=== PATIENT | female | born 1980 | race Caucasian/White ===

== ENCOUNTER 2017-12-28 06:51 | Observation (INO) | payer BC ==
[~2017-12-28 06:51] MED LIST: Lactated Ringers 1,000 ML IV SCH; Sodium Chloride 0.9% 10 ML Syringe FLUSH PRN; Sodium Chloride 0.9% 2.5 ML Syringe FLUSH PRN
[2017-12-28] MEDS ORDERED: Lactated Ringers 1,000 ML IV SCH (07:00)
[2017-12-28] MEDS ORDERED: Rocuronium 10 MG/ML 10 ML Syringe ONE (07:24)
[2017-12-28] MEDS ORDERED: Etomidate 2 MG/ML 20 ML SDV IVPUSH ONE (07:24)
[2017-12-28] MEDS ORDERED: Ondansetron 4 MG/2 ML SDV ONE (07:24)
[2017-12-28] MEDS ORDERED: Midazolam 1 MG/ML 2 ML SDV ONE (07:24)
[2017-12-28] MEDS ORDERED: fentaNYL 250 MCG/5 ML SDV ONE (07:24)
[2017-12-28] MEDS ORDERED: Lidocaine 2% 5 ML SDV ONE (07:24)
[2017-12-28] MEDS ORDERED: Bupivacaine 0.25% 10 ML SDV ONE ×2 (07:26)
--- NOTE | 2017-12-28 07:27 | PCM.PREANE ---
Preanesthetic Assessment - Anesthesia/Transfusion/Family Hx Anesthesia History: Prior Anesthesia Without Reaction Family History of Anesthesia Reaction: No Transfusion History: No Prior Transfusion(s) Intubation History: Unknown - Review of Systems General: No Symptoms Pulmonary: No Symptoms Cardiovascular: No Symptoms Gastrointestinal: No Symptoms Neurological: No Symptoms Other: Reports: None - Physical Assessment Height: 1.73 m Weight: 75.296 kg ASA Class: 3 Mental Status: Alert & Oriented x3 Airway Class: Mallampati = 2 Dentition: Reports: Normal Dentition Thyro-Mental Finger Breadths: 3 Mouth Opening Finger Breadths: 2 ROM/Head Extension: Full Lungs: Clear to Auscultation, Normal Respiratory Effort Cardiovascular: Regular Rate, Regular Rhythm - Allergies Allergies/Adverse Reactions: Allergies Allergy/AdvReac Type Severity Reaction Status Date / Time No Known Allergies Allergy Verified 12/23/17 10:19 - Blood Blood Available: No - Anesthesia Plan Pre-Op Medication Ordered: None - Acknowledgements Anesthesia Type Planned: General Anesthesia Pt an Appropriate Candidate for the Planned Anesthesia: Yes Alternatives and Risks of Anesthesia Discussed w Pt/Guardian: Yes Pt/Guardian Understands and Agrees with Anesthesia Plan: Yes PreAnesthesia Questionnaire HEENT History: Reports: Other (See Below) Other HEENT History: wears glasses/contacts Cardiovascular History: Reports: CAD, Cardiomyopathy (EF 35-39%), [place], Stents ( x2 LAD in '12 (november) after STEMI, followed by defibrilator insertion in january), Other (See Below) Other Cardiovascular History: cardiac arrest in 2011, states "had blood clot by my heart after cardiac arrest" Gastrointestinal History: Reports: Other (See Below) Other Gastrointestinal History: occasional heartburn Genitourinary History: Reports: None Musculoskeletal History: Reports: Fracture Other Musculoskeletal History: fx ankle, wrist and ribs Neurological History: Reports: Migraines Psychiatric History: Reports: Anxiety, Depression, Mood Swings - Past Surgical History Head Surgeries/Procedures: Reports: None Cardiovascular Surgical History: Reports: Coronary Artery Stent Other Cardiovascular Surgeries/Procedures: defribrillator placement GI Surgical History: Reports: Cholecystectomy Female Surgical History: Reports: Breast Biopsy, LEEP, Other (See Below) Other Female Surgeries/Procedures: laparoscopy for ovarian cystectomy - SUBSTANCE USE Smoking Status *Q: Former Smoker Tobacco Use Within Last Twelve Months: No Recreational Drug Use History: No - HOME MEDS Home Medications: Home Meds Aspirin [[place] Aspirin] 81 mg PO DAILY 12/23/17 [History] Carvedilol [Coreg] 1 tab PO BID 12/23/17 [History] Fish Oil/[place]-3 Fatty Acids [Fish Oil 1,000 MG] 1 tab PO DAILY 12/23/17 [ History] Lisinopril 2.5 mg PO DAILY 12/23/17 [History] Nitroglycerin 1 tab SL ASDIRECTED PRN 12/23/17 [History] Norethindrone [Nupur] 1 tab PO DAILY 12/23/17 [History] Spironolactone [Aldactone] 0.5 tab PO DAILY 12/23/17 [History] Ubidecarenone [Coq-10] 1 tab PO DAILY 12/23/17 [History] Vitamin B Complex 1 tab PO DAILY 12/23/17 [History] atorvaSTATin Calcium [Atorvastatin Calcium] 40 mg PO DAILY 12/23/17 [History] buPROPion HCl [Wellbutrin Xl] 450 mg PO DAILY 12/23/17 [History] busPIRone [Buspar] 5 mg PO BID 12/23/17 [History] - CURRENT (IN HOUSE) MEDS Current Meds: Current Medications Lactated Ringer's (Ringers, Lactated) 1,000 mls @ 125 mls/hr IV ASDIRECTED [facility] Sodium Chloride (Saline Flush) 10 ml FLUSH ASDIRECTED PRN PRN Reason: Keep Vein Open Sodium Chloride (Saline Flush) 2.5 ml FLUSH ASDIRECTED PRN PRN Reason: Keep Vein Open Discontinued Medications Lactated Ringer's (Ringers, Lactated) 1,000 mls @ 125 mls/hr IV ASDIRECTED [facility]
[2017-12-28] MEDS ORDERED: Dexamethasone 4 MG/ML 5 ML MDV ONE (08:17)
[2017-12-28] MEDS ORDERED: diphenhydrAMINE 50 MG/ML SDV ONE (08:17)
[2017-12-28] MEDS ORDERED: fentaNYL 100 MCG/2 ML SDV IVPUSH PRN (08:51)
[2017-12-28] MEDS ORDERED: Acetaminophen/oxyCODONE 325-10 MG Tab PO PRN (09:34)
--- NOTE | 2017-12-28 09:41 | PCM.OPNOTE ---
- General Post-Op/Procedure Note Date of Surgery/Procedure: 12/28/17 Operative Procedure(s): Laparoscopy, bilateral salpingectomy Findings: Normal anteverted uterus, normal cervix, normal ovaries bilaterally. Left fallopian tube fibrimal end adherent to the posterior surface of the left ovary Pre Op Diagnosis: Paratuabl cysts Post-Op Diagnosis: Same Anesthesia Technique: General ET Tube Primary Surgeon: Ирина Delgadillo Strawberry Grower: Marjorie Hensley Pathology: Right and left fallopian tubes EBL in mLs: 10 Complications: None Condition: Good Free Text/Narrative:: Intake & Output 12/27/17 12/28/17 12/28/17 22:59 06:59 14:59 Output Total 30 Balance -30
--- NOTE | 2017-12-28 10:00 | PCM.POSTAN ---
POST ANESTHESIA ASSESSMENT - MENTAL STATUS Mental Status: Alert, Oriented - VITAL SIGNS Pulse Rate: 76 SaO2: 99 Resp Rate: 12 - RESPIRATORY Respiratory Status: Respiratory Rate WNL, Airway Patent, O2 Saturation Stable - CARDIOVASCULAR CV Status: Pulse Rate WNL, Blood Pressure Stable - GASTROINTESTINAL GI Status: No Symptoms - PAIN Pain Score: 3 - POST OP HYDRATION Hydration Status: Adequate & Stable
--- NOTE | 2017-12-28 10:39 | PCM48HPAN ---
Post Anesthesia Note - EVALUATION WITHIN 48HRS OF ANESTHETIC Vital Signs in Normal Range: Yes Patient Participated in Evaluation: Yes Respiratory Function Stable: Yes Airway Patent: Yes Cardiovascular Function Stable: Yes Hydration Status Stable: Yes Pain Control Satisfactory: Yes Nausea and Vomiting Control Satisfactory: Yes Mental Status Recovered: Yes Pulse Rate: 76 Resp Rate: 12
[2017-12-28] MEDS: Acetaminophen/oxyCODONE 325-5 MG Tab PO PRN ×3 (10:40→19:23)
--- NOTE | 2017-12-28 12:22 | PCM.SN ---
- Free Text/Narrative Note: Patient is comfortable on the floor. Denies pain and has been out of bed, tolerated it, has urinated twice. No vaginal bleeding She is on telemetry. Vital signs are stable A/P: POD#0 s/p laparoscopy with bilateral salpingectomy, stable Continue current care Saline lock Pain meds PRN Patient would stay in for overnight observation on telemetry due to her cardiac history.
[2017-12-28] MEDS ORDERED: Carboxymethylcellulose Sodium 0.5% Ophth Soln 0.4 ML UD Box of 30 EYEBOTH PRN (17:02)
--- NOTE | 2017-12-28 20:13 | OR ---
SURGEON: Ирина Delgadillo MD DATE OF PROCEDURE: 12/28/2017 INSTRUCTIONAL TECHNOLOGY TEACHER: JO HERNANDEZ. PREOPERATIVE DIAGNOSIS: Paraovarian cyst. POSTOPERATIVE DIAGNOSIS: Paraovarian cyst. PROCEDURE PERFORMED: Laparoscopic bilateral salpingectomy. ANESTHESIA: General endotracheal. COMPLICATIONS: None. ESTIMATED BLOOD LOSS: Minimal. DISPOSITION: Stable to recovery room. FINDINGS: Normal-sized anteverted uterus. Left fallopian tube and fimbria end adherent posteriorly to the left ovary. Right ovary looked grossly normal. No other pelvic or abdominal pathology were noted. INDICATION: Patient is a 37-year-old lady who is requesting to have her tubes removed due to recurrent symptomatic paratubal cysts. At present time, they have been managed conservatively due to her extensive cardiac history, but she would like to proceed with the tubes removed, especially since she is not interested in having kids of her own. She understands that the removal of the tubes lead to permanent sterilization. Due to her extensive cardiac history (stents and defibrillator in situ), she has been cleared medically by the cement car dumper. She would be in-house overnight for observation post surgery. The risks of the surgery including alternatives were discussed with the patient extensively and she opted to proceed with the surgery and appropriate consent was obtained. DESCRIPTION OF PROCEDURE: The patient was taken to the operating room, where induction of general anesthesia was performed without difficulty. After appropriate level of anesthesia, she was placed in dorsal lithotomy position, prepped and draped in a sterile fashion for laparoscopic surgery. The bladder was emptied. Examination under anesthesia revealed a normal-sized uterus with no adnexal masses palpable. The a bivalve speculum was placed in the patient's vagina and anterior lip of the cervix was grasped with an Allis clamp, Zumi uterine manipulator was then advanced into the uterus and the balloon inflated. The speculum was removed from the vagina and conveyor system operator's gloves were changed. The attention was then turned to the patient's abdomen. The umbilical fold infiltrated with 0.25 Marcaine and a 5-mm skin incision was made with a scalpel within the umbilical fold. The laparoscope was placed into 5-mm trocar and with this placed perpendicular to the abdomen, entry into the abdominal cavity was achieved and confirmed optically. The gas was then used to insufflate to a pressure of 12 mmHg. Abdominal and pelvic survey was performed and then the second and the third trocars were placed in the lower uterine quadrants under direct visualization, 8 cm from the mid level after infiltration with 0.5% Marcaine. The aforementioned findings were then noted. Using the 5-mm ligature device, the fimbrial end of the left fallopian tube, which was adherent to the left ovary was then gently detached by serially cauterizing the mesosalpinx close to the tube. This was totally detached and removed from the abdominal cavity. Then using a nontraumatic grasper, the rest of the fallopian tube was grasped and the routine salpingectomy was performed by serial cauterization and ligation of the mesonephric until the cornual end was reached. The left tube was then detached and removed completely from the abdominal cavity through the 5-mm port. The same procedure was performed on the right side and a routine salpingectomy was performed without difficulty. The right tube was detached and removed completely from the abdominal cavity through the port. Copious irrigation was performed and operative sites were found to be hemostatic. The CO2 gas was released. The left and right ports were then removed from the abdominal cavity under direct visualization. The umbilical port was also removed. All skin incisions were closed with 4-0 Monocryl using subcuticular stitches. The Zumi manipulator was removed from the patient's vagina and no bleeding was noted from the clamp application site on the cervix. The patient tolerated the procedure well. Sponge, lap, and needle counts were correct at the end of the procedure. She was taken to the recovery room in stable condition. ADUMVIV / JO ANNL /[id number] FAITH
[2017-12-28] MEDS ORDERED: Carvedilol 6.25 MG Tab PO SCH (21:00)
[2017-12-28] MEDS ORDERED: atorvaSTATin 40 MG Tab PO SCH (21:00)
[2017-12-28] MEDS ORDERED: busPIRone 5 MG Tab PO SCH (21:00)
--- NOTE | 2017-12-29 06:45 | PCM.SURGPN ---
- General Info Date of Service: 12/29/17 POD#: 1 Post-Op Diagnosis: s/p laparoscopy with bilateral salpingectomy Functional Status: Reports: Pain Controlled, Tolerating Diet, Ambulating, Urinating - Review of Systems General: Denies: Fever, Weakness, Malaise, Chills HEENT: Denies: Headaches Pulmonary: Denies: Shortness of Breath, Pleuritic Chest Pain Cardiovascular: Denies: Chest Pain, Palpitations, Dyspnea on Exertion, Orthopnea Gastrointestinal: Denies: Abdominal Pain - Patient Data Vitals - Most Recent: Last Vital Signs Temp 36.7 C 12/29/17 04:00 Pulse 72 12/29/17 04:00 Resp 19 12/29/17 04:00 BP 104/58 L 12/29/17 04:00 Pulse Ox 96 12/29/17 04:00 Weight - Most Recent: 165 lb 15.988 oz I&O - Last 24 Hours: Intake & Output 12/28/17 12/28/17 12/29/17 14:59 22:59 06:59 Intake Total 3141 140 7864 Output Total 30 840 3050 Balance 1270 -60 -1640 Lab Results Last 24 Hrs: Laboratory Results - last 24 hr 12/28/17 12/28/17 12/28/17 Range/Units 07:09 07:09 07:20 WBC 6.40 (4.0-11.0) K/uL RBC 4.63 (4.30-5.90) M/uL Hgb 14.4 (12.0-16.0) g/dL Hct 41.6 (36.0-46.0) % MCV 89.8 (80.0-98.0) fL MCH 31.1 (27.0-32.0) pg MCHC 34.6 (31.0-37.0) g/dL RDW Std Deviation 41.7 (28.0-62.0) fl RDW Coeff of Joni 13 (11.0-15.0) % Plt Count 327 (150-400) K/uL MPV 9.10 (7.40-12.00) fL Nucleated RBC % 0.0 /100WBC Nucleated RBCs # 0 K/uL Urine HCG, Qual NEGATIVE (NEGATIVE) Blood Type A POSITIVE Antibody Screen NEGATIVE Med Orders - Current: Current Medications Artificial Tears (Refresh Plus 0.5%) 1 each EYEBOTH ASDIRECTED PRN PRN Reason: Dry Eyes Last Admin: 12/28/17 17:50 Dose: 1 drop Atorvastatin Calcium (Lipitor) 40 mg PO BEDTIME [facility] Last Admin: 12/28/17 21:16 Dose: 40 mg Buspirone HCl (Buspar) 5 mg PO BID [facility] Last Admin: 12/28/17 21:16 Dose: 5 mg Carvedilol (Coreg) 6.25 mg PO BID [facility] Last Admin: 12/28/17 21:16 Dose: 6.25 mg Fentanyl (Sublimaze) 50 mcg IVPUSH .Q5MIN PRN PRN Reason: Pain Oxycodone/Acetaminophen (Percocet 325-5 Mg) 1 tab PO Q4H PRN PRN Reason: Pain Last Admin: 12/28/17 19:23 Dose: 1 tab Oxycodone/Acetaminophen (Percocet 325-10 Mg) 2 tab PO Q4H PRN PRN Reason: Pain Last Admin: 12/29/17 04:00 Dose: 2 tab Discontinued Medications Bupivacaine HCl (Sensorcaine-Mpf 0.25%) Confirm Administered Dose 10 ml .ROUTE .STK-MED ONE Stop: 12/28/17 07:27 Bupivacaine HCl (Sensorcaine-Mpf 0.25%) Confirm Administered Dose 10 ml .ROUTE .STK-MED ONE Stop: 12/28/17 07:27 Dexamethasone (Dexamethasone) Confirm Administered Dose 20 mg .ROUTE .STK-MED ONE Stop: 12/28/17 08:18 Diphenhydramine HCl (Benadryl) Confirm Administered Dose 50 mg .ROUTE .STK-MED ONE Stop: 12/28/17 08:18 Etomidate (Amidate) Confirm Administered Dose 40 mg IVPUSH .STK-MED ONE Stop: 12/28/17 07:25 Fentanyl (Sublimaze) Confirm Administered Dose 250 mcg .ROUTE .STK-MED ONE Stop: 12/28/17 07:25 Lactated Ringer's (Ringers, Lactated) 1,000 mls @ 125 mls/hr IV ASDIRECTED [facility] Lactated Ringer's (Ringers, Lactated) 1,000 mls @ 125 mls/hr IV ASDIRECTED [facility] Last Admin: 12/28/17 07:15 Dose: 125 mls/hr Acetaminophen (Ofirmev) Confirm Administered Dose 100 mls @ as directed IV .STK- MED ONE Stop: 12/28/17 07:29 Lidocaine (Xylocaine-Mpf 2%) Confirm Administered Dose 5 ml .ROUTE .STK-MED ONE Stop: 12/28/17 07:25 Midazolam HCl (Versed 1 Mg/Ml) Confirm Administered Dose 2 mg .ROUTE .STK-MED ONE Stop: 12/28/17 07:25 Ondansetron HCl (Zofran) Confirm Administered Dose 4 mg .ROUTE .STK-MED ONE Stop: 12/28/17 07:25 Rocuronium [place] (Zemuron) Confirm Administered Dose 100 mg .ROUTE .STK-MED ONE Stop: 12/28/17 07:25 Sodium Chloride (Saline Flush) 10 ml FLUSH ASDIRECTED PRN PRN Reason: Keep Vein Open Sodium Chloride (Saline Flush) 2.5 ml FLUSH ASDIRECTED PRN PRN Reason: Keep Vein Open - Exam Wound/Incisions: Dressing Dry and Intact General: Alert, Oriented Lungs: Clear to Auscultation, Normal Respiratory Effort Cardiovascular: Regular Rate, Regular Rhythm GI/Abdominal Exam: Normal Bowel Sounds, Non-Tender Extremities: Normal Inspection, No Pedal Edema Skin: Warm Psy/Mental Status: Alert, Normal Affect, Normal Mood - Problem List & Annotations (1) S/P laparoscopic procedure SNOMED Code(s): 591537834, 144132868, 851609787 Code(s): Z98.890 - OTHER SPECIFIED POSTPROCEDURAL STATES Status: Acute Current Visit: Yes (2) Status post bilateral salpingectomy SNOMED Code(s): 829329313, 341410413 Code(s): Z90.79 - ACQUIRED ABSENCE OF OTHER GENITAL ORGAN(S) Status: Acute Current Visit: Yes - Problem List Review Problem List Initiated/Reviewed/Updated: Yes - My Orders Last 24 Hours: Active Orders 24 hr Category Date Time Status Patient Status [ADT] Routine ADT 12/28/17 09:35 Active Ambulate [RC] PER UNIT ROUTINE Care 12/28/17 09:35 Active Communication Order [RC] PER UNIT ROUTINE Care 12/28/17 17:03 Active Intake and Output [RC] PRN Care 12/28/17 09:34 Active Telemetry Monitoring [Cardiac Monitoring] [RC] Q8H Care 12/28/17 10:29 Active Up With Assistance [RC] PER UNIT ROUTINE Care 12/28/17 09:35 Active Regular Diet [DIET] Diet 12/28/17 Lunch Active Acetaminophen/oxyCODONE [Percocet 325-10 MG] Med 12/28/17 09:34 Active 2 tab PO Q4H PRN Acetaminophen/oxyCODONE [Percocet 325-5 MG] Med 12/28/17 09:34 Active 1 tab PO Q4H PRN Carboxymethylcellulose Sodium [Refresh Plus 0.5%] Med 12/28/17 17:02 Active 1 each EYEBOTH ASDIRECTED PRN Carvedilol [Coreg] Med 12/28/17 21:00 Active 6.25 mg PO BID atorvaSTATin [Lipitor] Med 12/28/17 21:00 Active 40 mg PO BEDTIME busPIRone [Buspar] Med 12/28/17 21:00 Active 5 mg PO BID fentaNYL [Sublimaze] Med 12/28/17 08:51 Active 50 mcg IVPUSH .Q5MIN PRN Peripheral IV Discontinue [OM.PC] Routine Oth 12/28/17 09:34 Ordered Resuscitation Status Routine Resus Stat 12/28/17 09:34 Ordered Medication Orders Artificial Tears (Refresh Plus 0.5%) 1 each EYEBOTH ASDIRECTED PRN PRN Reason: Dry Eyes Last Admin: 12/28/17 17:50 Dose: 1 drop Atorvastatin Calcium (Lipitor) 40 mg PO BEDTIME [facility] Last Admin: 12/28/17 21:16 Dose: 40 mg Buspirone HCl (Buspar) 5 mg PO BID [facility] Last Admin: 12/28/17 21:16 Dose: 5 mg Carvedilol (Coreg) 6.25 mg PO BID [facility] Last Admin: 12/28/17 21:16 Dose: 6.25 mg Fentanyl (Sublimaze) 50 mcg IVPUSH .Q5MIN PRN PRN Reason: Pain Oxycodone/Acetaminophen (Percocet 325-5 Mg) 1 tab PO Q4H PRN PRN Reason: Pain Last Admin: 12/28/17 19:23 Dose: 1 tab Admin: 12/28/17 14:51 Dose: 1 tab Admin: 12/28/17 10:40 Dose: 1 tab Oxycodone/Acetaminophen (Percocet 325-10 Mg) 2 tab PO Q4H PRN PRN Reason: Pain Last Admin: 12/29/17 04:00 Dose: 2 tab - Assessment Assessment (Free Text/Narrative):: POD#1, s/p laparoscopy with bilateral salpingectomy, stable and afebrile. Pain is well controlled She did well overnight with no events on telemetry. VSS have remained stable She is stable to be discharged today - Plan Plan (Free Text/Narrative):: Discharge instructions reviewed with patient Bleeding and infections precautions given She may take off dressings later today Nothing in the vagina for 2 weeks Prescription for oxycodone given, should alternate it with OTC Ibuprofen Follow up at [facility] in 2 weeks scheduled
== END 2017-12-29 07:40 | disposition home or self-care (01) ==
LOC: MW.SDS 06:51 → MW.MS 10:01
PROVIDERS: ADMIT Obstetrics & Gynecology; ATTEND Obstetrics & Gynecology
DX: N83.8 Other noninflammatory disorders of ovary, fallopian tube and broad ligament (principal); I25.2 Old myocardial infarction; F32.9 Major depressive disorder, single episode, unspecified; F41.9 Anxiety disorder, unspecified; Z87.891 Personal history of nicotine dependence; Z79.82 Long term (current) use of aspirin; Z79.899 Other long term (current) drug therapy; Z95.810 Presence of automatic (implantable) cardiac defibrillator; Z95.5 Presence of coronary angioplasty implant and graft
CPT/HCPCS: 36415; 58661; 81025; 85027; 86850; 86900; 86901; 88302; A9270; G0378; J1100; J1200; J2250; J2405; J3010; J7120; 00840

== ENCOUNTER 2022-07-31 11:50 | Observation (INO) | payer BC ==
[2022-07-31] MEDS ORDERED: Sodium Chloride 0.9% 1,000 ML IV STA (12:04)
[2022-07-31] MEDS ORDERED: Morphine 4 MG/ML Syringe IVPUSH STA (12:05)
[2022-07-31] MEDS ORDERED: Ertapenem 1 GM in Sodium Chloride 0.9% 50 ML IV STA (12:05)
[2022-07-31] MEDS ORDERED: Sugammadex Sodium 200 MG/2 ML VIAL ONE (13:31)
[2022-07-31] MEDS ORDERED: Ondansetron 4 MG/2 ML SDV ONE (13:31)
[2022-07-31] MEDS ORDERED: Rocuronium Bromide 50 MG/5 ML Syringe ONE (13:31)
[2022-07-31] MEDS ORDERED: Lidocaine 2% 5 ML SDV ONE (13:31)
[2022-07-31] MEDS ORDERED: Propofol 200 MG/20 ML SDV ONE (13:31)
[2022-07-31] MEDS ORDERED: Dexamethasone 4 MG/ML 5 ML MDV ONE (13:31)
[2022-07-31] MEDS ORDERED: fentaNYL 100 MCG/2 ML SDV ONE (13:31)
[2022-07-31] MEDS ORDERED: Bupivacaine 0.5% 30 ML SDV ONE (13:31)
[2022-07-31] MEDS ORDERED: HYDROmorphone 2 MG/ML Syringe ONE (14:32)
[2022-07-31] MEDS ORDERED: Metoclopramide 10 MG/2 ML SDV IVPUSH PRN (15:07)
[2022-07-31] MEDS ORDERED: Albuterol 0.083% 2.5 MG/3 ML Neb Soln NEB PRN (15:07)
[2022-07-31] MEDS ORDERED: Ondansetron 4 MG/2 ML SDV IVPUSH PRN ×2 (15:07→15:17)
[2022-07-31] MEDS ORDERED: Morphine 2 MG/ML SYRINGE IVPUSH PRN (15:07)
[2022-07-31] MEDS ORDERED: HYDROmorphone 1 MG/ML Syringe IVPUSH PRN ×2 (15:07→15:17)
[2022-07-31] MEDS ORDERED: fentaNYL 50 MCG/ML SDV IVPUSH PRN (15:07)
[2022-07-31] MEDS ORDERED: Naloxone 0.4 MG/ML SDV IVPUSH PRN (15:07)
[2022-07-31] MEDS ORDERED: Ketorolac 30 MG/ML SDV ONE (15:15)
[2022-07-31] MEDS ORDERED: Lactated Ringers 1,000 ML IV SCH (15:30)
[2022-07-31] MEDS: Piperacillin/Tazobactam 3.375 GM in Sodium Chloride 0.9% 50 ML IV SCH ×2 (16:41→20:55)
[2022-07-31] MEDS: Acetaminophen/HYDROcodone 325-5 MG Tab PO PRN (20:52)
[2022-07-31] MEDS: busPIRone 5 MG Tab PO SCH (20:53)
[2022-07-31] MEDS: Carvedilol 3.125 MG Tab PO SCH (20:54)
[2022-08-01] MEDS: Acetaminophen/HYDROcodone 325-5 MG Tab PO PRN ×2 (04:25→09:04)
[2022-08-01] MEDS: Piperacillin/Tazobactam 3.375 GM in Sodium Chloride 0.9% 50 ML IV SCH ×2 (04:26→09:08)
[2022-08-01] MEDS ORDERED: Spironolactone 25 MG Tab PO SCH (09:00)
[2022-08-01] MEDS ORDERED: buPROPion 150 MG Tab.ER PO SCH (09:00)
[2022-08-01] MEDS ORDERED: atorvaSTATin 40 MG Tab PO SCH (09:00)
[2022-08-01] MEDS ORDERED: Aspirin 81 MG Tab.EC PO SCH (09:00)
[2022-08-01] MEDS ORDERED: Lisinopril 5 MG Tab PO SCH (09:00)
[2022-08-01] MEDS: busPIRone 5 MG Tab PO SCH (09:05)
[2022-08-01] MEDS: Carvedilol 3.125 MG Tab PO SCH (09:05)
== END 2022-08-01 11:35 | disposition home or self-care (01) ==
LOC: MW.ED 11:50 → MW.SDS 12:57 → MW.MS 15:18
PROVIDERS: ADMIT Surgery; ATTEND Surgery
DX: K35.33 Acute appendicitis with perforation, localized peritonitis, and gangrene, with abscess (principal); D27.0 Benign neoplasm of right ovary; I25.10 Atherosclerotic heart disease of native coronary artery without angina pectoris; G43.909 Migraine, unspecified, not intractable, without status migrainosus; F41.9 Anxiety disorder, unspecified; F32.A Depression, unspecified; Z79.899 Other long term (current) drug therapy; Z90.49 Acquired absence of other specified parts of digestive tract; Z98.890 Other specified postprocedural states; Z95.5 Presence of coronary angioplasty implant and graft; Z79.82 Long term (current) use of aspirin
CPT/HCPCS: 00840; 93005; A9270-GY; J0131; J1100; J1170; J1335; J1885; J2270; J2405; J2543; J2704; J3010; J3490; J7030; J7050; J7120